=== PATIENT | female | born 1980 | race African-American/Black ===

== ENCOUNTER 2023-01-27 20:10 | Inpatient (IN) | payer OTHER ==
[2023-01-27] MEDS ORDERED: ONDANSETRON 4 MG/2 ML VIAL IVPUSH ONE (21:39)
[2023-01-27] MEDS ORDERED: FAMOTIDINE 20 MG/50 ML IVPB 20 MG/50 ML MG IVPB ONE ×2 (21:39→21:54)
[2023-01-27] MEDS ORDERED: MAG HYDROX/AL HYDROX/SIMETH 30 ML UNIT-DOSE CUP PO ONE (21:39)
[2023-01-27] MEDS ORDERED: ACETAMINOPHEN 1000 MG/100 ML BAG IVPB ONE (21:39)
[2023-01-27] MEDS ORDERED: ACETAMINOPHEN INJECTION 100 ML IVPB ONE (21:53)
[2023-01-27] MEDS ORDERED: MAG HYDROX/AL HYDROX/SIMETH 30 ML UNIT-DOSE CUP ONE (21:54)
[2023-01-27] MEDS ORDERED: ONDANSETRON 4 MG/2 ML VIAL ONE (21:54)
[2023-01-27 22:40] LABS: BASO % 0.3 % (0-2.0); EOS % 0.1 % (0-4.5); HEMATOCRIT 37.8 % (32.4-45.2); HEMOGLOBIN 11.8 GM/dL (10.7-15.3); LYMPH % 10.7 % (8-40); MCH 22.7 pg (25.7-33.7); MCHC 31.3 g/dl (32.0-36.0); MEAN CELL VOLUME 72.7 fl (80-96); MONO % 4.4 % (3.8-10.2); NEUT % 84.5 % (42.8-82.8); PLATELET COUNT 217 10^3/uL (134-434); RBC 5.21 M/mm3 (3.60-5.2); RDW 13.9 % (11.6-15.6); WHITE BLOOD COUNT 10.5 K/mm3 (4.0-10.0)
[2023-01-27 23:04] LABS: POTASSIUM 3.4 mmol/L (3.5-5.1)
[2023-01-27 23:06] LABS: CALCIUM 8.3 mg/dL (8.5-10.1)
[2023-01-27 23:07] LABS: ALBUMIN 3.2 g/dl (3.4-5.0); BLOOD UREA NITROGEN 17.8 mg/dL (7-18)
[2023-01-27 23:10] LABS: CREATININE 0.6 mg/dL (0.55-1.3)
[2023-01-27 23:11] LABS: BILIRUBIN,TOTAL 0.4 mg/dL (0.2-1); TOT PROT 6.5 g/dl (6.4-8.2)
[2023-01-28] MEDS ORDERED: POTASSIUM CHLORIDE TABS 20 MEQ TABLET.ER (FP) PO ONE ×2 (01:00→01:34)
[2023-01-28] MEDS ORDERED: PIPERACILLIN/TAZOB 3.375 GM 3.375 GM in DEXTROSE 5%-WATER - 50 ML IVPB ONE (04:56)
[2023-01-28] MEDS ORDERED: PIPERACILLIN/TAZOB 3.375 GM 3.375 GM/50 ML BAG IVPB ONE (05:01)
[2023-01-28] MEDS ORDERED: CEFTRIAXONE 1 GM/50 ML BAG ONE (09:01)
[2023-01-28] MEDS ORDERED: ONDANSETRON 4 MG/2 ML VIAL IVPUSH PRN (09:25)
[2023-01-28] MEDS: LACTATED RINGERS SOLUTION 1,000 ML IV SCH (09:38)
[2023-01-28] MEDS ORDERED: CEFTRIAXONE 1 GM in DEXTROSE 5%-WATER - 50 ML IVPB SCH (10:00)
[2023-01-28] MEDS ORDERED: ALBUTEROL SO4 HFA INHALER IH PRN ×2 (10:31→10:37)
[2023-01-28 17:20] VITALS: BMI 29.9
[2023-01-29] MEDS: FLUTICASONE/SALMETEROL (WIXELA) 100 MCG/50 MCG DISKUS IH SCH ×3 (02:25→21:10)
[2023-01-29 09:48] LABS: BASO % 0.7 % (0-2.0); EOS % 3.8 % (0-4.5); HEMATOCRIT 36.1 % (32.4-45.2); HEMOGLOBIN 11.1 GM/dL (10.7-15.3); MCHC 30.8 g/dl (32.0-36.0); MEAN CELL VOLUME 74.8 fl (80-96); MEAN PLT VOLUME 9.7 fl (7.5-11.1); NEUT % 46.5 % (42.8-82.8); PLATELET COUNT 195 10^3/uL (134-434); RBC 4.83 M/mm3 (3.60-5.2); RDW 13.8 % (11.6-15.6); WHITE BLOOD COUNT 6.8 K/mm3 (4.0-10.0)
[2023-01-29 10:03] LABS: POTASSIUM 3.4 mmol/L (3.5-5.1)
[2023-01-29 10:06] LABS: ALBUMIN 3.1 g/dl (3.4-5.0); BLOOD UREA NITROGEN 5.2 mg/dL (7-18); CALCIUM 8.1 mg/dL (8.5-10.1); MAGNESIUM 1.9 mg/dL (1.8-2.4)
[2023-01-29 10:09] LABS: CREATININE 0.7 mg/dL (0.55-1.3)
[2023-01-29 10:11] LABS: BILIRUBIN,TOTAL 0.3 mg/dL (0.2-1)
[2023-01-29] MEDS: ARIPiprazole 2 MG TABLET PO SCH (10:31)
[2023-01-29] MEDS: VENLAFAXINE HCL 75 MG E.R. CAPSULES PO SCH (10:32)
[2023-01-29] MEDS: LACTATED RINGERS SOLUTION 1,000 ML IV SCH ×2 (10:42→18:41)
[2023-01-29] MEDS ORDERED: POTASSIUM CHLORIDE TABS 20 MEQ TABLET.ER (FP) PO ONE (17:42)
[2023-01-29 17:56] VITALS: RESP 18
[2023-01-30 09:08] LABS: BASO % 0.6 % (0-2.0); EOS % 3.4 % (0-4.5); HEMATOCRIT 36.5 % (32.4-45.2); HEMOGLOBIN 11.2 GM/dL (10.7-15.3); MCH 22.7 pg (25.7-33.7); MCHC 30.6 g/dl (32.0-36.0); MEAN CELL VOLUME 74.2 fl (80-96); MEAN PLT VOLUME 10.2 fl (7.5-11.1); MONO % 6.8 % (3.8-10.2); NEUT % 54.2 % (42.8-82.8); PLATELET COUNT 222 10^3/uL (134-434); RBC 4.92 M/mm3 (3.60-5.2); RDW 13.5 % (11.6-15.6)
[2023-01-30] MEDS: ARIPiprazole 2 MG TABLET PO SCH ×2 (09:27→09:37)
[2023-01-30] MEDS: VENLAFAXINE HCL 75 MG E.R. CAPSULES PO SCH ×2 (09:27→09:37)
[2023-01-30] MEDS: FLUTICASONE/SALMETEROL (WIXELA) 100 MCG/50 MCG DISKUS IH SCH ×3 (09:27→21:31)
[2023-01-30 09:30] LABS: POTASSIUM 4.2 mmol/L (3.5-5.1)
[2023-01-30 09:33] LABS: CALCIUM 8.4 mg/dL (8.5-10.1)
[2023-01-30 09:34] LABS: BLOOD UREA NITROGEN 7.4 mg/dL (7-18)
[2023-01-30 09:37] LABS: CREATININE 0.7 mg/dL (0.55-1.3)
[2023-01-31] MEDS: FLUTICASONE/SALMETEROL (WIXELA) 100 MCG/50 MCG DISKUS IH SCH ×2 (09:04→21:02)
[2023-01-31] MEDS: VENLAFAXINE HCL 75 MG E.R. CAPSULES PO SCH (09:05)
[2023-01-31] MEDS: ARIPiprazole 2 MG TABLET PO SCH (09:05)
[2023-02-01] MEDS: FLUTICASONE/SALMETEROL (WIXELA) 100 MCG/50 MCG DISKUS IH SCH (09:43)
[2023-02-01] MEDS: VENLAFAXINE HCL 75 MG E.R. CAPSULES PO SCH (09:43)
[2023-02-01] MEDS: ARIPiprazole 2 MG TABLET PO SCH (09:43)
[2023-02-01 15:10] VITALS: BP 142/67; PULSE 75; TEMP 98.5
== END 2023-02-01 16:56 | DRG 392 ==
LOC: JER 20:10 → JERBED 01-28 05:32 → INTOOBSV 01-28 05:32 → J5S 01-28 11:05 → OBSVTOIN 01-28 14:55
PROVIDERS: ADMIT Internal Medicine; ATTEND Internal Medicine
DX: A08.39 Other viral enteritis (principal); G91.8 Other hydrocephalus; I10 Essential (primary) hypertension; F31.9 Bipolar disorder, unspecified; G80.8 Other cerebral palsy; F71 Moderate intellectual disabilities; H47.20 Unspecified optic atrophy; J45.909 Unspecified asthma, uncomplicated; R10.33 Periumbilical pain; E87.6 Hypokalemia; R11.2 Nausea with vomiting, unspecified; N83.299 Other ovarian cyst, unspecified side
CPT/HCPCS: 0241U-QW; 36415; 74177-TC; 76856-TC; 80048; 80053; 83690; 83735; 84100; 84703; 85025; 93005; 93010; 99285-25; G0378; Q9967

== ENCOUNTER 2024-03-17 15:17 | Emergency (ER) | payer OTHER ==
[2024-03-17 15:29] VITALS: BMI 27.4
[2024-03-17] MEDS ORDERED: DEXAMETHASONE 4 MG TABLET (FP) ONE (15:57)
[2024-03-17] MEDS ORDERED: ALBUTEROL SO4 2.5/IPRATROPIUM 0.5 INH SOL 3 ML VIAL.NEB. NEB SCH (16:00)
[2024-03-17] MEDS: ALBUTEROL SO4 2.5/IPRATROPIUM 0.5 INH SOL 3 ML VIAL.NEB. NEB SCH (16:11)
[2024-03-17] MEDS: DEXAMETHASONE 0.5 MG TABLET PO PRN (16:11)
[2024-03-17] MEDS ORDERED: DEXAMETHASONE 4 MG TABLET (FP) PO PRN (18:11)
[2024-03-17 18:34] VITALS: BP 127/68; PULSE 77; RESP 20; TEMP 98.8
== END 2024-03-17 22:10 | disposition home or self-care (01) ==
LOC: JER 15:17
PROC: 3E0F7GC Introduction of Other Therapeutic Substance into Respiratory Tract, Via Natural or Artificial Opening (ICD-10-PCS; principal; 2024-03-17)
DX: R05.9 Cough, unspecified (principal); R07.9 Chest pain, unspecified; Z20.822 Contact with and (suspected) exposure to COVID-19
CPT/HCPCS: 0241U-QW; 71045-TC-FY; 71250-TC; 99285-25

== ENCOUNTER 2024-12-19 01:13 | Emergency (ER) | payer OTHER ==
[2024-12-19 01:31] VITALS: BP 120/67; PULSE 89; RESP 20; TEMP 98.8; BMI 25.7
[2024-12-19] MEDS ORDERED: CEPHALEXIN MONOHYDRATE 500 MG CAPSULE (UD) ONE (03:11)
[2024-12-19] MEDS: CEPHALEXIN MONOHYDRATE 500 MG CAPSULE (UD) PO ONE (03:12)
== END 2024-12-19 03:15 | disposition home or self-care (01) ==
LOC: JER 01:13
DX: R05.9 Cough, unspecified (principal); R35.0 Frequency of micturition
CPT/HCPCS: 71045-TC-FY; 99283-25

== ENCOUNTER 2024-12-20 06:34 | Emergency (ER) | payer OTHER ==
[2024-12-20] MEDS ORDERED: ALBUTEROL SO4 2.5/IPRATROPIUM 0.5 INH SOL 3 ML VIAL.NEB. NEB ONE (06:47)
[2024-12-20] MEDS: ALBUTEROL SO4 2.5/IPRATROPIUM 0.5 INH SOL 3 ML VIAL.NEB. NEB SCH (06:53)
[2024-12-20] MEDS ORDERED: predniSONE 20 MG TABLET (UD) ONE (07:40)
[2024-12-20 08:05] LABS: CO2 27.0 mmol/L (21-32); GLUCOSE,RANDOM 126.0 mg/dL (74-106)
[2024-12-20 08:07] LABS: ABSOLUTE IMMATURE GRANULOCYTES 0.02 x10^3/uL (0.0-0.031); BASOPHILS # 0.03 x10^3/uL (0.01-0.08); EOSINOPHIL % 2.8 % (0.7-5.8); EOSINOPHILS # 0.21 x10^3/uL (0.04-0.36); MCHC 29.2 g/dl (32.2-35.5); MEAN CELL VOLUME 76.5 fl (79.4-94.8); MEAN PLT VOLUME 12.5 fl (9.4-12.3); MONOCYTE # 0.81 x10^3/uL (0.24-0.86); MONOCYTE % 10.9 % (4.7-12.5); RDW 13.8 % (12.2-17.1)
[2024-12-20 08:08] LABS: CREATININE 0.9 mg/dL (0.55-1.3); SGOT/AST 22.0 U/L (15-37); SGPT/ALT 25.0 U/L (13-61)
[2024-12-20 08:10] LABS: TOT PROT 7.2 g/dl (6.4-8.2)
[2024-12-20 08:10] LABS: BG HCT 40.0 % (32.4-45.2); VENOUS BASE EXCESS -2.2 mmol/L (-2-2); VENOUS O2 SATURATION 39.2 % (70-80); VENOUS PCO2 45.8 mmHg (38-52); VENOUS PH 7.334 (7.310-7.410)
[2024-12-20 08:11] LABS: ALK PHOS 63.0 U/L (45-117)
[2024-12-20] MEDS: predniSONE 20 MG TABLET (UD) PO ONE (08:23)
[2024-12-20 08:25] LABS: EPI CELLS 4 /uL (0-25.1); HYALINE CASTS 0 /uL (0-3.1); URINE APPEARANCE CLEAR; URINE BACTERIA 1 /uL (0-1359); URINE BILIRUBIN NEGATIVE (NEGATIVE); URINE COLOR YELLOW; URINE GLUCOSE (UA) NEGATIVE (NEGATIVE); URINE KETONE 1+ (NEGATIVE); URINE LEUK ESTERASE NEGATIVE (NEGATIVE); URINE NITRITE NEGATIVE (NEGATIVE); URINE PROTEIN NEGATIVE (NEGATIVE); URINE RBC 34 /uL (0-23.9); URINE UROBILINOGEN 0.2 mg/dL (0.2-1.0); URINE WBC 5 /uL (0-25.8)
[2024-12-20 08:36] LABS: LACTIC ACID 2.1 mmol/L (0.4-2.0)
[2024-12-20] MEDS ORDERED: ACETAMINOPHEN INJECTION 100 ML ONE (09:04)
[2024-12-20] MEDS ORDERED: CEFTRIAXONE 1 GM/50 ML BAG ONE (09:04)
[2024-12-20] MEDS ORDERED: AZITHROMYCIN IVPB 500 MG/250 ML BAG IVPB ONE (09:05)
[2024-12-20] MEDS: ACETAMINOPHEN 1000 MG/100 ML BAG IVPB ONE (09:09)
[2024-12-20] MEDS: AZITHROMYCIN IVPB 500 MG in DEXTROSE 5%-WATER - 250 ML IVPB ONE (09:10)
[2024-12-20] MEDS: SODIUM CHLORIDE 0.9% 500 ML INFUS.BAG IV ONE (09:11)
[2024-12-20 13:22] VITALS: BP 122/59; PULSE 89; RESP 18; TEMP 98.1; BMI 25.7
[2024-12-20 17:24] LABS: HCV DIAGNOSTIC IN-HOUSE W/RFLX NON-REACTIVE (NONREACTIVE)
[2024-12-20 17:26] LABS: HIV INTERPRETATION NEGATIVE (NEGATIVE)
== END 2024-12-20 12:16 | disposition home or self-care (01) ==
LOC: JER 06:34
PROC: 3E03329 Introduction of Other Anti-infective into Peripheral Vein, Percutaneous Approach (ICD-10-PCS; principal; 2024-12-20)
PROC: 3E033NZ Introduction of Analgesics, Hypnotics, Sedatives into Peripheral Vein, Percutaneous Approach (ICD-10-PCS; 2024-12-20)
PROC: 3E03329 Introduction of Other Anti-infective into Peripheral Vein, Percutaneous Approach (ICD-10-PCS; 2024-12-20)
DX: R06.02 Shortness of breath (principal); R05.9 Cough, unspecified; R50.9 Fever, unspecified; R00.0 Tachycardia, unspecified
CPT/HCPCS: 36415; 71045-TC-FY; 80053; 81003; 82803; 83605; 84484; 85025; 86803; 87086; 87389; 87637-QW; 93005; 93010; 99285-25

== ENCOUNTER 2024-12-25 14:51 | Emergency (ER) | payer OTHER ==
[2024-12-25 15:10] VITALS: RESP 20; TEMP 98.2; BMI 23.3
[2024-12-25] MEDS ORDERED: ALBUTEROL SO4 2.5/IPRATROPIUM 0.5 INH SOL 3 ML VIAL.NEB. NEB SCH (16:15)
[2024-12-25] MEDS ORDERED: IPRATROPIUM BR 0.02% 0.5 MG/2.5 ML VIAL.NEB. NEB ONE (16:16)
[2024-12-25] MEDS: IPRATROPIUM BR 0.02% 0.5 MG/2.5 ML VIAL.NEB. NEB ONE (16:20)
[2024-12-25 18:15] VITALS: BP 125/73; PULSE 80
== END 2024-12-25 18:23 | disposition home or self-care (01) ==
LOC: JER 14:51
PROC: 3E0F7GC Introduction of Other Therapeutic Substance into Respiratory Tract, Via Natural or Artificial Opening (ICD-10-PCS; principal; 2024-12-25)
DX: R05.9 Cough, unspecified (principal); R11.10 Vomiting, unspecified; R51.9 Headache, unspecified; R07.9 Chest pain, unspecified
CPT/HCPCS: 71045-TC-FY; 94640; 99283-25